=== PATIENT | female | born 1970 | race African-American/Black ===

== ENCOUNTER → 2020-04-25 | Outpatient (CLI) | payer MEDICARE, MEDICAID | END | disposition home or self-care (01) | LOC: MRI 09:11 | PROVIDERS: ATTEND Neurological Surgery | DX: M47.812 Spondylosis without myelopathy or radiculopathy, cervical region (principal); M48.02 Spinal stenosis, cervical region; M54.2 Cervicalgia; M25.78 Osteophyte, vertebrae | CPT/HCPCS: 72141 ==

== ENCOUNTER 2022-03-10 11:00 | Inpatient (IN) | payer MEDICARE, MEDICAID ==
[2022-03-10] VITALS (31 sets, daily range): BP systolic 101–144; BP diastolic 5–87
[~2022-03-10] VITALS: Ht 160 cm; Wt 68.0 kg
[~2022-03-10 11:00] MED LIST: ALBU18HF2 IH; AMLO10TA4 PO; ATOR20TA PO; BENA-8 PO; CYM20 PO; DICL75TA5 PO; GABA-290 PO; HYDR12.54 PO; MIRA50TA PO; OXYC18CA PO
[2022-03-10] MEDS ORDERED: LACTATED RINGERS 1,000 ML IV SCH (11:45)
[2022-03-10] MEDS ORDERED: THROMBIN (BOVINE) 5000 UNITS/VIAL TOP ONE ×2 (12:12→12:15)
[2022-03-10] MEDS ORDERED: GENTAMICIN SULF 40MG/ML 2ML VIAL ONE (12:12)
[2022-03-10] MEDS ORDERED: LIDOCAINE HCL/EPINEPHRINE 1%-EPI 1:100,000 20 ML VIAL ONE ×2 (12:13→12:15)
[2022-03-10] MEDS ORDERED: ROCURONIUM BROMIDE 10MG/ML VIAL 5ML IV ONE (12:49)
[2022-03-10] MEDS ORDERED: FENTANYL CITRATE/PF 50MCG/ML 2ML VIAL ONE (12:50)
[2022-03-10] MEDS ORDERED: MIDAZOLAM HCL 2 MG/2 ML VIAL ONE (12:50)
[2022-03-10] MEDS ORDERED: PROPOFOL 200MG/20ML VIAL IV ONE ×3 (12:50→14:00)
[2022-03-10] MEDS ORDERED: HYDROMORPHONE HCL/PF 2MG/ML CPJ ONE (13:36)
[2022-03-10] MEDS ORDERED: PHENYLEPHRINE HCL 10 MG/ML 1ML (IV VIAL) IV ONE (13:42)
[2022-03-10] MEDS ORDERED: CEFAZOLIN SODIUM 1000MG/VIAL ONE ×2 (14:01)
[2022-03-10] MEDS ORDERED: ESMOLOL HCL 10MG/ML 10ML VIAL IV ONE (14:01)
[2022-03-10] MEDS ORDERED: LIDOCAINE HCL 1% 20ML VIAL (Pyxis) INJ ONE (14:01)
[2022-03-10] MEDS ORDERED: NEOSTIGMINE METHYLSULFATE 1MG/ML 10 ML VIAL ONE (14:30)
[2022-03-10] MEDS ORDERED: GLYCOPYRROLATE 0.2 MG/ML 2ML VIAL ONE ×2 (14:31→14:39)
[2022-03-10] MEDS ORDERED: ONDANSETRON HCL 4MG/2ML INJ ONE (14:41)
[2022-03-10] MEDS ORDERED: KETOROLAC 30MG/ML VIAL ONE (14:42)
[2022-03-10] MEDS ORDERED: HYDRALAZINE 20MG/ML VIAL ONE (14:48)
[2022-03-10] MEDS ORDERED: LABETALOL HCL 5MG/ML VIAL 20ML IV ONE (14:48)
[2022-03-10] MEDS ORDERED: NALOXONE HCL 0.4MG/ML VIAL IV PRN (15:00)
[2022-03-10] MEDS: NICARDIPINE 100 MG in SODIUM CHLORIDE 0.9% 60 ML IV PRN (15:59)
[2022-03-10] MEDS: DEXT 5%/LACTATED RINGERS 1,000 ML IV SCH (16:00)
[2022-03-10] MEDS ORDERED: IPRATROPIUM/ALBUTEROL 0.5-3(2.5)MG/3ML NEB HHN PRN (16:45)
[2022-03-10] MEDS: DEXAMETHASONE 4MG/ML 1ML VIAL IV SCH (17:47)
[2022-03-10] MEDS: MORPHINE SULFATE 4 MG/ML CPJ (NOT FOR IM USE) IV PRN (20:36)
[2022-03-10] MEDS: IPRATROPIUM/ALBUTEROL 0.5-3(2.5)MG/3ML NEB HHN SCH (21:08)
[2022-03-10] MEDS ORDERED: CEFAZOLIN SODIUM 1000MG/VIAL IV SCH (22:00)
[2022-03-11] VITALS (62 sets, daily range): BP systolic 87–152; BP diastolic 52–90
[2022-03-11] MEDS: NICARDIPINE 100 MG in SODIUM CHLORIDE 0.9% 60 ML IV PRN ×2 (00:10→08:04)
[2022-03-11] MEDS: CEFAZOLIN 1000MG PREMIX 50 ML IV SCH ×4 (00:15→21:21)
[2022-03-11] MEDS: DEXAMETHASONE 4MG/ML 1ML VIAL IV SCH ×4 (00:15→16:56)
[2022-03-11] MEDS: MORPHINE SULFATE 4 MG/ML CPJ (NOT FOR IM USE) IV PRN ×3 (00:52→08:20)
[2022-03-11] MEDS: IPRATROPIUM/ALBUTEROL 0.5-3(2.5)MG/3ML NEB HHN SCH ×4 (01:21→20:29)
[2022-03-11] MEDS: DEXT 5%/LACTATED RINGERS 1,000 ML IV SCH ×3 (02:00→17:04)
[2022-03-11] MEDS ORDERED: BENAZEPRIL 10MG TABLET PO SCH (10:45)
[2022-03-11] MEDS: HYDROCHLOROTHIAZIDE 12.5MG CAPSULE PO SCH (11:15)
[2022-03-11] MEDS: LISINOPRIL 20MG TABLET PO SCH (11:15)
[2022-03-11] MEDS: AMLODIPINE 10MG TABLET PO SCH (11:15)
[2022-03-11 11:44] LABS: BASOPHILS % 0.1 % (0.0-2.0); HEMOGLOBIN. 13.4 g/dL (12.0-16.0); LYMPHOCYTES % 10.4 % (20.0-50.0); MEAN CORPUSCULAR HEMOGLOBIN 29.8 pg (28.0-32.0); MEAN CORPUSCULAR VOLUME 89.3 fL (81.0-99.0); MEAN PLATELET VOLUME 9.3 fl (7.4-10.4); MONOCYTES % 1.5 % (2.0-8.0); PLATELET 197 x1000/uL (130-400); RED BLOOD CELL COUNT 4.48 mill/uL (4.2-5.4); RED CELL DISTRIBUTION WIDTH 13.9 % (11.6-14.6)
[2022-03-11] MEDS: LIDOCAINE 5% PATCH TOP SCH (12:14)
[2022-03-11 12:38] LABS: CHLORIDE 105 mEq/L (98-107)
[2022-03-11] MEDS: GABAPENTIN 300MG CAPSULE PO SCH ×2 (13:44→21:21)
[2022-03-11] MEDS: OXYCODONE HCL 10MG TABLET SR 12HR PO SCH (13:44)
[2022-03-11] MEDS: DULOXETINE HCL 20MG DR CAPSULE PO SCH (16:55)
[2022-03-11] MEDS: HYDROCODONE/ACETAMINOPHEN 7.5/325MG TABLET PO PRN ×2 (16:56→21:21)
[2022-03-11] MEDS: ATORVASTATIN CALCIUM 20MG TABLET PO SCH (21:21)
[2022-03-12] VITALS (18 sets, daily range): BP systolic 89–129; BP diastolic 57–87
[2022-03-12] MEDS: HYDROCODONE/ACETAMINOPHEN 7.5/325MG TABLET PO PRN ×3 (01:17→11:18)
[2022-03-12] MEDS: IPRATROPIUM/ALBUTEROL 0.5-3(2.5)MG/3ML NEB HHN SCH ×2 (01:53→08:22)
[2022-03-12] MEDS: GABAPENTIN 300MG CAPSULE PO SCH ×2 (06:09→14:01)
[2022-03-12] MEDS: DEXT 5%/LACTATED RINGERS 1,000 ML IV SCH ×2 (06:09→15:18)
[2022-03-12] MEDS: DULOXETINE HCL 20MG DR CAPSULE PO SCH ×2 (08:40→16:10)
[2022-03-12] MEDS: ATORVASTATIN CALCIUM 20MG TABLET PO SCH (08:40)
[2022-03-12] MEDS: HYDROCHLOROTHIAZIDE 12.5MG CAPSULE PO SCH (08:40)
[2022-03-12] MEDS: LIDOCAINE 5% PATCH TOP SCH (08:41)
[2022-03-12] MEDS: AMLODIPINE 10MG TABLET PO SCH (08:42)
[2022-03-12] MEDS: OXYCODONE HCL 10MG TABLET SR 12HR PO SCH ×2 (08:42→16:11)
[2022-03-12] MEDS: LISINOPRIL 20MG TABLET PO SCH (08:42)
== END 2022-03-12 17:25 | disposition home health service (06) | DRG 471 ==
LOC: OR 11:00 → MICUNO 14:50
PROVIDERS: ADMIT Neurological Surgery; ATTEND Neurological Surgery
PROC: 0RG10A0 Fusion of Cervical Vertebral Joint with Interbody Fusion Device, Anterior Approach, Anterior Column, Open Approach (ICD-10-PCS; principal; 2022-03-10)
PROC: 0RB30ZZ Excision of Cervical Vertebral Disc, Open Approach (ICD-10-PCS; 2022-03-10)
PROC: 01N10ZZ Release Cervical Nerve, Open Approach (ICD-10-PCS; 2022-03-10)
PROC: 4A11X4G Monitoring of Peripheral Nervous Electrical Activity, Intraoperative, External Approach (ICD-10-PCS; 2022-03-10)
DX: M48.02 Spinal stenosis, cervical region (principal); G82.50 Quadriplegia, unspecified; M47.12 Other spondylosis with myelopathy, cervical region; G95.29 Other cord compression; I10 Essential (primary) hypertension; M19.90 Unspecified osteoarthritis, unspecified site; M50.221 Other cervical disc displacement at C4-C5 level
CPT/HCPCS: 36415; 71045; 72040; 72141; 76000; 80048; 85025; 86850; 86900; 87426; 88304; 88311; 94640; 95925; 95926; 95928; 95929; 97116; 97162; 97530; 97535; C9803; J0360; J0690; J1100; J1170; J1580; J1885; J2250; J2270; J2370; J2405; J2704; J2710; J3010; J3490; J7050; J7121; L0172; C1713; C1762; C1889